=== PATIENT | male | born 1960 | race Caucasian/White ===

== ENCOUNTER 2018-04-07 11:35 | Day surgery (SDC) | payer BC ==
[~2018-04-07] VITALS: Ht 170.2 cm; Wt 94.3 kg
[~2018-04-07 11:35] MED LIST: AMLODIPINE5 MG PO; ENALAPR/HCTZ1 TA1 PO; FENOFIBRATE134 MG PO; METOPROLOL TART50 MG PO; OMEPRAZOLE20 MG PO; SG ASA LOW81 M1 PO; VASERETIC1 TAB PO; ZYRTEC10 MG PO
[2018-04-07 14:49] VITALS: BP 147/76
== END 2018-04-07 15:00 | disposition home or self-care (01) | DRG 951 ==
LOC: ENDO 11:35
PROVIDERS: ATTEND Internal Medicine Gastroenterology
PROC: 0DJD8ZZ Inspection of Lower Intestinal Tract, Via Natural or Artificial Opening Endoscopic (ICD-10-PCS; principal; 2018-04-07)
DX: Z12.11 Encounter for screening for malignant neoplasm of colon (principal); K64.4 Residual hemorrhoidal skin tags; K64.8 Other hemorrhoids; K21.9 Gastro-esophageal reflux disease without esophagitis; J30.9 Allergic rhinitis, unspecified; I10 Essential (primary) hypertension; Z80.0 Family history of malignant neoplasm of digestive organs; Z87.442 Personal history of urinary calculi

== ENCOUNTER 2022-06-24 16:57 | Emergency (ER) | payer BC ==
[~2022-06-24] VITALS: Ht 170.2 cm; Wt 88.6 kg
[2022-06-24] VITALS (7 sets, daily range): BP systolic 136–160; BP diastolic 87–96
[2022-06-24] MEDS ORDERED: NORVASC5 M1 PO (17:15)
[2022-06-24] MEDS ORDERED: TRAMADOL HYDROC50 M1 PO (18:36)
[2022-06-24] MEDS ORDERED: BACTRIM DS1 TAB PO (18:36)
== END 2022-06-24 19:14 | disposition home or self-care (01) | DRG 603 ==
LOC: ED 16:57
DX: L02.512 Cutaneous abscess of left hand (principal); T79.8XXA Other early complications of trauma, initial encounter